=== PATIENT | female | born 1990 | race Caucasian/White ===

== ENCOUNTER 2017-05-22 09:00 | Emergency (ER) | payer OTHER ==
[~2017-05-22] VITALS: Ht 162.6 cm; Wt 57.1 kg
[~2017-05-22 09:00] MED LIST: Amoxicillin500 MG PO; BIRTH CONTROL; CEPH500 PO; IBUP600 PO; Macrobid 100 M100 MG PO; PROM25 PO; PSEU120ER PO; Zofran Odt4 MG SL
[2017-05-22] MEDS ORDERED: Verotin-Gr Cap1 EACH PO (10:11)
[2017-05-22 11:39] LABS: Influenza A Negative (NEGATIVE); Influenza B Negative (NEGATIVE)
[2018-01-20] MEDS ORDERED: ACYC400 PO (08:29)
[2018-01-23] MEDS ORDERED: IBUP800 PO (16:23)
[2018-01-23] MEDS ORDERED: NITR100 PO (16:25)
== END 2017-05-22 11:59 | disposition home or self-care (01) ==
LOC: ER 09:00
PROVIDERS: Physician Assistant
DX: O21.9 Vomiting of pregnancy, unspecified (principal); Z87.891 Personal history of nicotine dependence; Z79.899 Other long term (current) drug therapy; Z3A.01 Less than 8 weeks gestation of pregnancy
CPT/HCPCS: 81000; 81025; 87804; 99283

== ENCOUNTER → 2021-10-07 | Outpatient (CLI) | payer BC, OTHER ==
[~2021-10-07] MED LIST changes: +ACYC400 PO; +IBUP800 PO; +NITR100 PO; +Verotin-Gr Cap1 EACH PO
[2021-10-09 15:10] LABS: HPV 16 Negative (Negative); HPV 18 Negative (Negative); HPV OTHER HR TYPES Positive (Negative)
== END | disposition home or self-care (01) ==
LOC: LAB 16:45 → LAB SHORT 16:45
PROVIDERS: Obstetrics & Gynecology
DX: Z12.4 Encounter for screening for malignant neoplasm of cervix (principal)
CPT/HCPCS: 87624; 87625; G0123

== ENCOUNTER 2022-08-20 19:54 | Emergency (ER) | payer BC, OTHER ==
[~2022-08-20] VITALS: Ht 162.6 cm; Wt 56.7 kg
[2022-08-20 20:36] LABS: BASOPHILS ABSOLUTE AUTO 0.04 K/mm3 (0.00-0.23); BASOPHILS PERCENT AUTO 1 % (0-2); EOSINOPHILS ABSOLUTE AUTO 0.08 K/mm3 (0.00-0.68); EOSINOPHILS PERCENT AUTO 1 % (0-6); Hematocrit 42.2 % (33.0-51.0); Hemoglobin 14.5 g/dL (11.5-16.0); IMMATURE GRAN ABSOLUTE AUTO 0.02 K/mm3 (0.00-0.10); IMMATURE GRAN PERCENT AUTO 0 % (0-1); LYMPHOCYTES ABSOLUTE AUTO 1.77 K/mm3 (0.84-5.20); LYMPHOCYTES PERCENT AUTO 28 % (21-46); MONOCYTES ABSOLUTE AUTO 0.52 K/mm3 (0.16-1.47); MONOCYTES PERCENT AUTO 8 % (4-13); Mean Corpuscular HGB 29.8 pg (26.0-34.0); Mean Corpuscular HGB Conc 34.4 g/dL (31.5-36.5); Mean Corpuscular Volume 87 fL (80-100); Mean Platelet Volume 10.6 fL (9.1-12.4); NEUTROPHILS ABSOLUTE AUTO 3.95 K/mm3 (1.96-9.15); NEUTROPHILS PERCENT AUTO 62 % (41-73); Platelet Count 201 K/mm3 (150-400); RDW Coefficient Variation 12.5 % (11.7-14.2); RDW Standard Deviation 39.8 fL (35.1-46.3); Red Blood Cell Count 4.86 M/mm3 (3.80-5.20); White Blood Cell Count 6.38 K/mm3 (4.00-11.30)
[2022-08-20 20:42] LABS: Source, Urine Clean Catch
[2022-08-20 20:49] LABS: Appearance, Urine Clear (Clear); Bilirubin, Urine Neg (Neg); Blood, Urine Neg (Neg); Color, Urine Yellow (P-Yellow); Glucose Qualitative, Urine Neg (Neg); Ketones, Urine Neg (Neg); Leukocyte Esterase, Urine Neg (Neg); Nitrite, Urine Neg (Neg); Protein, Urine 1+ (Neg); Urobilinogen, Urine NORM (Normal)
[2022-08-20 20:55] LABS: Albumin, Blood 4.3 g/dL (3.4-5.0); Albumin/Globulin Ratio 1.5 (0.8-1.8); Bilirubin, Total 0.9 mg/dL (0.1-1.0); Bun/Creatinine Ratio 14.7 (12.0-20.0); Calcium, Blood 8.9 mg/dL (8.5-10.1); Creatinine, Blood 0.75 mg/dL (0.40-1.00); Globulin, Blood 2.9 g/dL (2.2-4.0); Potassium, Blood 3.7 mmol/L (3.5-5.5); Total Protein, Blood 7.2 g/dL (6.4-8.2)
[2022-08-20] MEDS ORDERED: PSEUDOEPHEDRINE3010 PO (22:14)
[2022-08-20] MEDS ORDERED: MONT5TCH PO (22:14)
[2022-08-20] MEDS ORDERED: XANAX PO (22:15)
[2022-08-20] MEDS ORDERED: MECL25 PO (22:41)
[2022-08-20 23:00] VITALS: BP 105/69
== END 2022-08-20 23:02 | disposition home or self-care (01) ==
LOC: ER 19:54
PROVIDERS: Emergency Medicine
DX: H81.399 Other peripheral vertigo, unspecified ear (principal); Z79.899 Other long term (current) drug therapy
CPT/HCPCS: 80053; 81025; 85025; 93005; 93010; 99284-25; A9270

== ENCOUNTER → 2022-08-22 | Outpatient (CLI) | payer BC, OTHER ==
[~2022-08-22] MED LIST changes: +MECL25 PO; +MONT5TCH PO; +PSEUDOEPHEDRINE3010 PO; +XANAX PO
== END ==
LOC: LAB SHORT 15:59 → LAB 15:59
DX: R30.0 Dysuria (principal)
CPT/HCPCS: 87086